=== PATIENT | female | born 1985 | race Caucasian/White ===

== ENCOUNTER 2018-01-24 04:19 | Emergency (ER) | payer BC ==
--- NOTE | 2018-01-24 04:38 | PDOC ---
History of Present Illness - General Stated Complaint: HEADACHE/ARM PAIN Time Seen by Provider: 01/24/18 04:36 - History of Present Illness Initial Comments: 01/24/18 04:48 The patient is a 32 year old female with a history of HLD who presents for evaluation of headache. The patient reports onset of throbbing headache 2 days ago with associated photophobia and phonophobia. The patient reports worsening headache throughout the day with associated left arm heaviness and poorly described left sided chest pain prompting her presentation to the ED for further evaluation. She otherwise denies fevers, chills, SOB, nausea, vomiting , abdominal pain, numbness, tingling, weakness, or changes with urination or bowel movements. Past History - Past Medical History Allergies/Adverse Reactions: Allergies Allergy/AdvReac Type Severity Reaction Status Date / Time No Known Drug Allergies Allergy Verified 01/24/18 05:58 Home Medications: Ambulatory Orders Gabapentin [Neurontin] 300 mg PO HS 01/22/16 Levothyroxine [Synthroid -] 50 mcg PO DAILY 01/22/16 Oxycodone HCl [Roxicodone] 5 mg PO Q4H PRN #30 tablet MDD 6 01/23/16 Acetaminophen [Tylenol -] 500 mg PO Q4H #30 tablet 01/24/18 Anemia: No Asthma: No Cancer: Yes Cardiac Disorders: No CVA: No COPD: No CHF: No Dementia: No Diabetes: No GI Disorders: No Disorders: No HTN: No Hypercholesterolemia: Yes Liver Disease: No Seizures: No Thyroid Disease: No - Suicide/Smoking/Psychosocial Hx Smoking History: Never smoked Hx Alcohol Use: No Drug/Substance Use Hx: No Substance Use Type: None Review of Systems - Review of Systems Comments:: 01/24/18 04:59 Constitutional: No fevers, chills, fatigue, malaise HEENT: No Rhinorrhea, nasal congestion, visual changes Cardiovascular: Chest pain. No syncope, palpitations, lightheadedness Respiratory: No Cough, SOB, Hemoptysis, Gastrointestinal: No Abdominal pain, Nausea, Vomiting, Constipation, Diarrhea, Melena Genitourinary: No Dysuria, Frequency, Urgency, Hesitancy, Hematuria, Flank pain Musculoskeletal: No Myalgia, arthralgia Skin: No rashes, itching, bruising, pallor Neurologic: Headache. Left Arm Heaviness. Photophobia, Phonophobia. No Dizziness , Numbness, Weakness, or Tingling Psychiatric: No Hallucinations. No SI or HI *Physical Exam - Physical Exam Comments: 01/24/18 05:00 General Appearance: Nourished. In Mild Apparent Distress HEENT: EOMI, MALENA. No Pharyngeal Erythema, Tonsillar Exudate, Tonsillar Erythema Neck: No Cervical Lymphadenopathy Respiratory/Chest: Lungs Clear, Normal Breath Sounds. No Crackles, Rales, Rhonchi, Wheezing Cardiovascular: Regular Rhythm, Regular Rate. No Murmur, Gallops, Rubs Gastrointestinal/Abdominal: Normal Bowel Sounds, Soft. No Guarding, Rebound, Tenderness Musculoskeletal: No CVA Tenderness Extremity: Normal Capillary Refill Integumentary: Normal Color, Dry, Warm Neurologic: sole tacker II-XII NML intact, Fully Oriented, Alert, Normal Mood/Affect, Normal Response, Motor Strength 5/5. Normal Finger to Nose and Heel to [place] ED Treatment Course - LABORATORY CBC & Chemistry Diagram: 01/24/18 06:36 01/24/18 06:36 Medical Decision Making - Medical Decision Making 01/24/18 05:01 The patient is a 32 year old female with a history of HLD who presents for evaluation of headache. Differential includes but is not limited to: Migraine Headache, Intracranial process, Infectious, metabolic derangement. Given the patient's history and physical exam, we will obtain a cbc, cmp, troponin, serum preg, and head CT to evaluate further for possible etiologies. We will treat with iv fluids, iv tylenol, reglan, and benadryl and continue to monitor and reassess while here in the ED. *DC/Admit/Observation/Transfer Diagnosis at time of Disposition: Migraine - Discharge Dispostion Disposition: HOME - Prescriptions Prescriptions: Acetaminophen [Tylenol -] 500 mg PO Q4H #30 tablet - Referrals Referrals: Son Bailey [Primary Care Provider] - Monico Taylor DO [Staff Physician] - - Patient Instructions Additional Instructions: You were seen in the hospital for headache. Your labs and head CT were normal. Please take tylenol 500mg 4 times a day only if you have symptoms. Please make an appointment with your primary care physician within 1 week of discharge Please make an appointment with Dr. Taylor, a neurologist, within 1 month of discharge If your symptoms return or get worse, please return to the emergency room. - Post Discharge Activity
[2018-01-24] MEDS ORDERED: SODIUM CHLORIDE 1,000 ML IV STA (04:44)
[2018-01-24] MEDS ORDERED: ACETAMINOPHEN 1000 MG/100 ML VIAL (NON FORMULARY) IVPB ONE (04:45)
[2018-01-24] MEDS ORDERED: METOCLOPRAMIDE HCL INJECTION 10 MG/2 ML VIAL IVPUSH ONE (04:45)
--- NOTE | 2018-01-24 04:53 | PDOC ---
Attending Attestation - Resident Resident Name: Jerardo Britton - ED Attending Attestation I have performed the following: I have examined & evaluated the patient, The case was reviewed & discussed with the resident, I agree w/resident's findings & plan, Exceptions are as noted - HPI HPI: 01/24/18 06:03 Ms Birmingham is a 32 yo F h/o migraine, hypothyroidism who presents to the ER with a complaint of headache pt states she was in her usual state of health She oted a gradual onset of headache 2 days ago while at work No headtrauma (+) nausea (-) vomiting No diarrhea No fever or chills No neck pain Headache similar to prior however, this headache has not resolved Typically, she will use tylenol, and warm compress and this typically resolves her symptoms This has not helped her this time - Physicial Exam PE: 01/24/18 06:11 On examination: RRR CTA pt appears uncomfortable No focal neurological deficits No abd tenderness No nuchal rigidity No signs of head trauma - Medical Decision Making 01/24/18 06:12 32 yo F presenting with gradual onset of headache which has not resolved over the past 2 days No fevers or chills No nuchal rigidity DD: likely migraine vs. tension headache, unlikely meningitis, unlikely SAD/ICH Will do: labs Headache coctail CT head Re assess EKG: SR rate of 69 bpm, axis nml, no st elevations or depressions, t waves upright
[2018-01-24] MEDS ORDERED: ACETAMINOPHEN INJECTION 100 ML IVPB ONE (05:53)
[2018-01-24] MEDS ORDERED: METOCLOPRAMIDE HCL INJECTION 10 MG/2 ML VIAL ONE (05:53)
[2018-01-24 06:00] VITALS: BP 116/72; PULSE 71; TEMP 97.6; BMI 27.8
[2018-01-24 06:57] LABS: BASO % 0.8 % (0-2.0); EOS % 0.3 % (0-4.5); HEMATOCRIT 38.7 % (32.4-45.2); HEMOGLOBIN 13.6 GM/dL (10.7-15.3); LYMPH % 26.4 % (8-40); MCH 31.2 pg (25.7-33.7); MCHC 35.1 g/dl (32.0-36.0); MEAN CELL VOLUME 88.9 fl (80-96); MEAN PLT VOLUME 8.1 fl (7.5-11.1); MONO % 4.4 % (3.8-10.2); NEUT % 68.1 % (42.8-82.8); PLATELET COUNT 252 K/MM3 (134-434); RBC 4.36 M/mm3 (3.60-5.2); RDW 12.7 % (11.6-15.6); WHITE BLOOD COUNT 6.3 K/mm3 (4.0-10.0)
--- NOTE | 2018-01-24 07:12 | PDOC ---
*Physical Exam - Vital Signs Last Vital Signs Temp Pulse Resp BP Pulse Ox 97.6 F 71 20 116/72 100 01/24/18 04:25 01/24/18 04:25 01/24/18 04:25 01/24/18 04:25 01/24/18 04:25 - Physical Exam Comments: 01/24/18 07:15 GENERAL: A&Ox3, no acute distress EYES: PERRLA, EOMI ENT: Moist mucus membranes NECK: No JVD LUNGS: CTA, no wheezes HEART: RRR, no murmurs ABDOMEN: Soft, nontender, BS present MUSCULOSKELETAL: No CVA Tenderness EXTREMITIES: 2+ pulses, no edema. NEUROLOGICAL: Cranial nerves II-XII intact. ED Treatment Course - LABORATORY CBC & Chemistry Diagram: 01/24/18 06:36 01/24/18 06:36 - Medications Given in the ED: ED Medications Discontinued Medications Generic Name Dose Route Start Last Admin Trade Name Maciejq PRN Reason Stop Dose Admin Acetaminophen 1,000 mg 01/24/18 04:45 01/24/18 06:50 Ofirmev Injection - IVPB 01/24/18 04:46 1,000 mg ONCE ONE Administration Diphenhydramine HCl 25 mg 01/24/18 04:45 01/24/18 06:50 Benadryl Injection - IVPUSH 01/24/18 04:46 25 mg ONCE ONE Administration Sodium Chloride 1,000 mls @ 1,000 mls/hr 01/24/18 04:44 01/24/18 06:50 Normal Saline - IV 01/24/18 05:43 1,000 mls/hr ASDIR STA Administration Metoclopramide HCl 10 mg 01/24/18 04:45 01/24/18 06:51 Reglan Injection - IVPUSH 01/24/18 04:46 10 mg ONCE ONE Administration Medical Decision Making - Medical Decision Making 01/24/18 07:[address] Britton. Awaiting head CT and labs, will re-evaluate patient 01/24/18 08:13 Patient feels slightly better, will await result of head CT 01/24/18 09:46 -CT head negative -will d/c *DC/Admit/Observation/Transfer Diagnosis at time of Disposition: Migraine - Discharge Dispostion Disposition: HOME - Prescriptions Prescriptions: Acetaminophen [Tylenol -] 500 mg PO Q4H #30 tablet - Referrals Referrals: Son Bailey [Primary Care Provider] - Monico Taylor DO [Staff Physician] - - Patient Instructions Additional Instructions: You were seen in the hospital for headache. Your labs and head CT were normal. Please take tylenol 500mg 4 times a day only if you have symptoms. Please make an appointment with your primary care physician within 1 week of discharge Please make an appointment with Dr. Taylor, a neurologist, within 1 month of discharge If your symptoms return or get worse, please return to the emergency room. - Post Discharge Activity
[2018-01-24 07:13] LABS: ALBUMIN 3.8 g/dl (3.4-5.0); ANION GAP 7 (8-16); BLOOD UREA NITROGEN 8 mg/dL (7-18); CALCIUM 8.7 mg/dL (8.5-10.1); CHLORIDE 109 mmol/L (98-107); CO2 25 mmol/L (21-32); CREATININE 0.8 mg/dL (0.55-1.02); GLUCOSE,RANDOM 85 mg/dL (74-106); POTASSIUM 3.8 mmol/L (3.5-5.1); SGOT/AST 22 U/L (15-37); SGPT/ALT 35 U/L (12-78); SODIUM 141 mmol/L (136-145)
[2018-01-24 07:19] LABS: ALK PHOS 72 U/L (45-117); BILIRUBIN,TOTAL 0.7 mg/dL (0.2-1.0); TOT PROT 7.1 g/dl (6.4-8.2)
--- NOTE | 2018-01-24 07:25 | PDOC ---
*Physical Exam - Vital Signs Last Vital Signs Temp Pulse Resp BP Pulse Ox 97.6 F 71 20 116/72 100 01/24/18 04:25 01/24/18 04:25 01/24/18 04:25 01/24/18 04:25 01/24/18 04:25 - Physical Exam Comments: 01/24/18 09:35 Gen: aaox3, nad heart: +s1s2 reg lungs: cta b/l abd: soft, nt/nd +bs ext: no c/c/e neuro: cn ii-xii grossly intact, no focal deficits ED Treatment Course - LABORATORY CBC & Chemistry Diagram: 01/24/18 06:36 01/24/18 06:36 - ADDITIONAL ORDERS Additional order review: Laboratory Results 01/24/18 01/24/18 06:36 06:36 Sodium 141 Potassium 3.8 Chloride 109 H Carbon Dioxide 25 Anion Gap 7 L BUN 8 Creatinine 0.8 Creat Clearance w eGFR > 60 Random Glucose 85 Calcium 8.7 Total Bilirubin 0.7 D AST 22 ALT 35 Alkaline Phosphatase 72 Creatine Kinase 154 Troponin I < 0.02 Total Protein 7.1 Albumin 3.8 Serum , Qual Negative 01/24/18 06:36 RBC 4.36 MCV 88.9 MCHC 35.1 RDW 12.7 MPV 8.1 Neutrophils % 68.1 Lymphocytes % 26.4 Monocytes % 4.4 Eosinophils % 0.3 Basophils % 0.8 - Medications Given in the ED: ED Medications Discontinued Medications Generic Name Dose Route Start Last Admin Trade Name Maciejq PRN Reason Stop Dose Admin Acetaminophen 1,000 mg 01/24/18 04:45 01/24/18 06:50 Ofirmev Injection - IVPB 01/24/18 04:46 1,000 mg ONCE ONE Administration Diphenhydramine HCl 25 mg 01/24/18 04:45 01/24/18 06:50 Benadryl Injection - IVPUSH 01/24/18 04:46 25 mg ONCE ONE Administration Sodium Chloride 1,000 mls @ 1,000 mls/hr 01/24/18 04:44 01/24/18 06:50 Normal Saline - IV 01/24/18 05:43 1,000 mls/hr ASDIR STA Administration Metoclopramide HCl 10 mg 01/24/18 04:45 01/24/18 06:51 Reglan Injection - IVPUSH 01/24/18 04:46 10 mg ONCE ONE Administration Medical Decision Making - Medical Decision Making 01/24/18 08:30 a/p: 32yo female with murrieta - gradual onset -pt signed out from the prior attending pending labs and ct head -pt at CT currently. 01/24/18 09:[address] completed, no acute findings, awaiting official radiology read murrieta resolved pt feels better and requesting to go home will call rads to have head ct officially read 01/24/18 09:[address] negative for acute findings stable for d/c to home. *DC/Admit/Observation/Transfer Diagnosis at time of Disposition: Migraine - Prescriptions Prescriptions: Acetaminophen [Tylenol -] 500 mg PO Q4H #30 tablet - Referrals Referrals: Son Bailey [Primary Care Provider] - Monico Taylor DO [Staff Physician] - - Patient Instructions Additional Instructions: You were seen in the hospital for headache. Your labs and head CT were normal. Please take tylenol 500mg 4 times a day only if you have symptoms. Please make an appointment with your primary care physician within 1 week of discharge Please make an appointment with Dr. Taylor, a neurologist, within 1 month of discharge If your symptoms return or get worse, please return to the emergency room. - Post Discharge Activity - Attestations Physician Attestion: 01/24/18 09:46 I, Dr. Lennie Real DO, attest that this document has been prepared under my direction and personally reviewed by me in its entirety. I further attest, that it accurately reflects all work, treatment, procedures and medical decision -making performed by me.
--- NOTE | 2018-01-24 08:54 | EKG ---
Test Reason : Blood Pressure : / mmHG Vent. Rate : 069 BPM Atrial Rate : 069 BPM P-R Int : 154 ms QRS Dur : 068 ms QT Int : 382 ms P-R-T Axes : 065 054 034 degrees QTc Int : 409 ms NORMAL SINUS RHYTHM POSSIBLE LEFT ATRIAL ENLARGEMENT BORDERLINE ECG NO PREVIOUS ECGS AVAILABLE Confirmed by MANSI CERVANTES, JOSEPHINE ([id number]) on 01/24/2018 8:54:49 AM Referred By: Confirmed By:JOSEPHINE NAZARIO MD
== END 2018-01-24 10:24 | disposition home or self-care (01) ==
LOC: JER 04:19
PROC: 3E033NZ Introduction of Analgesics, Hypnotics, Sedatives into Peripheral Vein, Percutaneous Approach (ICD-10-PCS; principal; 2018-01-24)
PROC: 3E033GC Introduction of Other Therapeutic Substance into Peripheral Vein, Percutaneous Approach (ICD-10-PCS; 2018-01-24)
PROC: 3E033GC Introduction of Other Therapeutic Substance into Peripheral Vein, Percutaneous Approach (ICD-10-PCS; 2018-01-24)
DX: G43.909 Migraine, unspecified, not intractable, without status migrainosus (principal)
CPT/HCPCS: 36415; 70450-TC; 80053; 82550; 82553; 84484; 84703; 85025; 93005; 93010; 99282-25; J0131; J7030